=== PATIENT | male | born 1940 | race Caucasian/White ===

== ENCOUNTER 2018-12-06 20:01 | Inpatient (IN) | payer MEDICARE ==
[~2018-12-06] VITALS: Ht 188 cm; Wt 110.5 kg
[2018-12-06 22:20] VITALS: BP 161/84
[2018-12-06] MEDS ORDERED: DOCU-131 PO (22:54)
[2018-12-06] MEDS ORDERED: LOVA40TA2 PO (22:54)
[2018-12-06] MEDS ORDERED: GUAI600T80 PO (22:54)
[2018-12-06] MEDS ORDERED: LANS30CA PO (22:54)
[2018-12-06] MEDS ORDERED: GLIP10TA13 PO (22:54)
[2018-12-06] MEDS ORDERED: TERA10CA3 PO (22:54)
[2018-12-06] MEDS ORDERED: LOSA25TA25 PO (22:54)
[2018-12-06] MEDS ORDERED: METF500T17 PO (22:54)
[2018-12-06] MEDS ORDERED: INSU100I28 SQ-INSULIN ×2 (22:54)
[2018-12-06] MEDS ORDERED: ASPI-496 PO (22:54)
[2018-12-06] MEDS ORDERED: MONT10TA6 PO (22:54)
[2018-12-06] MEDS ORDERED: IBUP-1484 PO (22:54)
[2018-12-06] MEDS ORDERED: PIOG15TA22 PO (22:54)
[2018-12-06 23:19] VITALS: BP 161/84
[2018-12-06] MEDS ORDERED: SODIUM CHLORIDE 0.9% 1,000 ML IV SCH (23:50)
[2018-12-07] MEDS ORDERED: ENOXAPARIN 120MG/0.8ML SQ SCH
[2018-12-07] MEDS ORDERED: ACETAMINOPHEN 325 MG TABLET PO PRN
[2018-12-07] MEDS ORDERED: POLYETHYLENE GLYCOL 17 GM PACKET PO PRN
[2018-12-07] MEDS ORDERED: ONDANSETRON 2MG/ML, 2ML IVPush PRN
[2018-12-07] MEDS ORDERED: hydrALAzine 20 MG/ML, 1ML IVPush PRN
[2018-12-07] MEDS: CEFTRIAXONE PMX 2GM/50ML 50 ML IV SCH (00:17)
[2018-12-07] MEDS ORDERED: ALBUTEROL SULFATE 2.5 MG/3 ML NPPB PRN (01:00)
[2018-12-07 01:31] LABS: HEMOGLOBIN A1C 8.3 % (4.2-6.3)
[2018-12-07 02:10] VITALS: BP 138/80
[2018-12-07] MEDS: ASPIRIN 325 MG TABLET EC PO SCH (05:38)
[2018-12-07 06:31] VITALS: BP 143/83
[2018-12-07 06:53] LABS: BASOPHILS # (AUTO) 0.02 x10^3/uL (0-0.1); BASOPHILS % (AUTO) 0 % (0-1); EOSINOPHILS # (AUTO) 0.03 x10^3/uL (0-0.4); EOSINOPHILS % (AUTO) 0 % (1-7); LYMPHOCYTES # (AUTO) 1.01 x10^3/uL (1-3.4); LYMPHOCYTES % (AUTO) 11 % (22-44); MD NO; MEAN CORPUSCULAR HEMOGLOBIN 32.5 pg (27.5-34.5); MEAN CORPUSCULAR HGB CONC 33.6 g/dL (33.2-36.2); MEAN CORPUSCULAR VOLUME 96.6 fL (81-97); MEAN PLATELET VOLUME 8.6 fL (7.4-10.4); MONOCYTES # (AUTO) 1.03 x10^3/uL (0.2-0.8); MONOCYTES % (AUTO) 11 % (2-9); NEUTROPHILS # (AUTO) 7.38 x10^3/uL (1.8-6.8); NEUTROPHILS % (AUTO) 78 % (42-75); PLATELET COUNT 189 x10^3/uL (130-400); RED BLOOD COUNT 3.86 x10^6/uL (4.38-5.82); RED CELL DISTRIBUTION WIDTH 14.1 % (9.4-14.8)
[2018-12-07 07:02] LABS: ALBUMIN 2.8 g/dL (3.4-5.0); ANION GAP 9 mmol/L (5-15); CALCIUM 8.6 mg/dL (8.5-10.1); CHLORIDE 104 mmol/L (98-107)
[2018-12-07 07:09] LABS: ALANINE AMINOTRANSFERASE 42 U/L (12-78); ALKALINE PHOSPHATASE 91 U/L (45-117); BILIRUBIN,TOTAL 0.6 mg/dL (0.2-1.0); CHOL/HDL RATIO 2.8; CHOLESTEROL, TOTAL 116 mg/dL (140-239); HDL CHOL % 35 % (26-37); HDL CHOLESTEROL (DIRECT) 41 mg/dL (40-60); LDL CHOLESTEROL,CALCULATED 48 mg/dL (54-169); LDL/HDL RATIO 1.2 (0.5-3.0); TOTAL PROTEIN 6.9 g/dL (6.4-8.2); TRIGLYCERIDES 134 mg/dL (50-200); VLDL CHOLESTEROL 27 mg/dL (0-25)
[2018-12-07] MEDS: INSULIN LISPRO 100 UNITS/ML, PEN SQ-INSULIN SCH ×4 (08:08→20:18)
[2018-12-07] MEDS ORDERED: HEPARIN 5,000 UNITS/ML, 1ML IV ONE (08:30)
[2018-12-07] MEDS ORDERED: INSULIN GLARGINE 100 UNITS/ML, PEN SQ-INSULIN ONE (08:30)
[2018-12-07] MEDS: PANTOPROZOLE 40MG TABLET PO SCH (08:58)
[2018-12-07] MEDS: GUAIFENESIN ER 600 MG TABLET PO SCH ×2 (08:58→20:18)
[2018-12-07] MEDS: AZITHROMYCIN 500 MG TABLET PO SCH (08:59)
[2018-12-07] MEDS: LOSARTAN 25MG TABLET PO SCH (08:59)
[2018-12-07] MEDS ORDERED: INSULIN GLARGINE 100 UNITS/ML, PEN SQ-INSULIN SCH (09:00)
[2018-12-07] MEDS: HEPARIN 25,000 UNITS/500ML PMX 500 ML IV PRN (09:15)
[2018-12-07 11:41] VITALS: BP 132/72
[2018-12-07] MEDS ORDERED: NITROGLYCERIN 0.4 MG/SPRAY SL PRN (12:00)
[2018-12-07] MEDS ORDERED: NITROGLYCERIN 0.4 MG BOTTLE (25 TABS) SL PRN (12:00)
[2018-12-07] MEDS ORDERED: GLUCAGON 1 MG IM PRN (12:30)
[2018-12-07] MEDS ORDERED: DEXTROSE 4 GM TAB.CHEW PO PRN (12:30)
[2018-12-07] MEDS ORDERED: DEXTROSE 50%, 50ML SYRINGE IVPush PRN (12:30)
[2018-12-07 13:58] VITALS: BP 127/72
[2018-12-07] MEDS: HEPARIN 5,000 UNITS/ML, 1ML IV PRN ×2 (16:14→23:25)
[2018-12-07 19:51] VITALS: BP 119/57
[2018-12-07] MEDS ORDERED: TERAZOSIN 5MG CAPSULE ONE (19:56)
[2018-12-07] MEDS: INSULIN GLARGINE 100 UNITS/ML, PEN SQ-INSULIN SCH (20:17)
[2018-12-07] MEDS: TERAZOSIN 2MG CAPSULE PO SCH (20:18)
[2018-12-07] MEDS: LOVASTATIN 40 MG TABLET PO SCH (20:18)
[2018-12-07] MEDS: SODIUM CHLORIDE FLUSH 10ML SYR IVF SCH (20:19)
[2018-12-07] MEDS: DOCUSATE 100 MG CAPSULE PO SCH (20:19)
[2018-12-07 21:25] VITALS: BP 114/58
[2018-12-07] MEDS: SODIUM CHLORIDE 0.9% 1,000 ML IV SCH (23:57)
[2018-12-08] MEDS: CEFTRIAXONE PMX 2GM/50ML 50 ML IV SCH (00:12)
[2018-12-08 01:02] VITALS: BP 130/78
[2018-12-08 05:30] LABS: BASOPHILS # (AUTO) 0.05 x10^3/uL (0-0.1); BASOPHILS % (AUTO) 1 % (0-1); EOSINOPHILS # (AUTO) 0.26 x10^3/uL (0-0.4); EOSINOPHILS % (AUTO) 4 % (1-7); LYMPHOCYTES # (AUTO) 1.23 x10^3/uL (1-3.4); LYMPHOCYTES % (AUTO) 18 % (22-44); MD NO; MEAN CORPUSCULAR HEMOGLOBIN 32.8 pg (27.5-34.5); MEAN CORPUSCULAR HGB CONC 33.6 g/dL (33.2-36.2); MEAN CORPUSCULAR VOLUME 97.6 fL (81-97); MEAN PLATELET VOLUME 8.2 fL (7.4-10.4); MONOCYTES # (AUTO) 0.97 x10^3/uL (0.2-0.8); MONOCYTES % (AUTO) 15 % (2-9); NEUTROPHILS # (AUTO) 4.19 x10^3/uL (1.8-6.8); NEUTROPHILS % (AUTO) 63 % (42-75); PLATELET COUNT 211 x10^3/uL (130-400); RED BLOOD COUNT 3.61 x10^6/uL (4.38-5.82); RED CELL DISTRIBUTION WIDTH 13.5 % (9.4-14.8)
[2018-12-08 05:41] LABS: ALBUMIN 2.5 g/dL (3.4-5.0); ANION GAP 7 mmol/L (5-15); CALCIUM 8.5 mg/dL (8.5-10.1); CHLORIDE 107 mmol/L (98-107)
[2018-12-08 05:44] LABS: ALANINE AMINOTRANSFERASE 41 U/L (12-78); ALKALINE PHOSPHATASE 102 U/L (45-117); BILIRUBIN,TOTAL 0.3 mg/dL (0.2-1.0); TOTAL PROTEIN 6.3 g/dL (6.4-8.2)
[2018-12-08] MEDS: ASPIRIN 325 MG TABLET EC PO SCH (05:48)
[2018-12-08] MEDS ORDERED: POTASSIUM CHLORIDE 20 MEQ in SODIUM CHLORIDE 0.9% 250 ML IV ONE (06:30)
[2018-12-08 06:31] VITALS: BP 112/67
[2018-12-08] MEDS: INSULIN LISPRO 100 UNITS/ML, PEN SQ-INSULIN SCH ×4 (07:00→21:21)
[2018-12-08] MEDS: HEPARIN 25,000 UNITS/500ML PMX 500 ML IV PRN (07:43)
[2018-12-08] MEDS: SODIUM CHLORIDE 0.9% 1,000 ML IV SCH ×2 (07:50→21:23)
[2018-12-08] MEDS ORDERED: SODIUM CHLORIDE 0.9% 1,000 ML IV SCH ×2 (08:17→15:06)
[2018-12-08] MEDS: LOSARTAN 25MG TABLET PO SCH (08:46)
[2018-12-08] MEDS: PANTOPROZOLE 40MG TABLET PO SCH (08:46)
[2018-12-08] MEDS: GUAIFENESIN ER 600 MG TABLET PO SCH ×2 (08:46→21:21)
[2018-12-08] MEDS: AZITHROMYCIN 500 MG TABLET PO SCH (09:19)
[2018-12-08] MEDS: INSULIN GLARGINE 100 UNITS/ML, PEN SQ-INSULIN SCH ×2 (09:23→21:28)
[2018-12-08 12:58] VITALS: BP 137/74
[2018-12-08] MEDS ORDERED: VERAPAMIL 2.5 MG/ML, 2ML ONE (13:42)
[2018-12-08] MEDS ORDERED: LIDOCAINE-MPF 1%, 5ML ONE (13:42)
[2018-12-08] MEDS ORDERED: MIDAZOLAM 1 MG/ML, 2ML ONE (13:42)
[2018-12-08] MEDS ORDERED: FENTANYL PF 100 MCG/2ML ONE (13:42)
[2018-12-08] MEDS: HEPARIN 5,000 UNITS/ML, 1ML IV PRN (13:47)
[2018-12-08] MEDS ORDERED: TICAGRELOR 90 MG TABLET ONE (14:44)
[2018-12-08] MEDS ORDERED: BIVALIRUDIN 250 MG ONE (14:44)
[2018-12-08] MEDS ORDERED: BIVALIRUDIN 250 MG in SODIUM CHLORIDE 0.9% 50 ML IV SCH (15:06)
[2018-12-08 18:46] VITALS: BP 138/77
[2018-12-08] MEDS: DOCUSATE 100 MG CAPSULE PO SCH (21:21)
[2018-12-08] MEDS: LOVASTATIN 40 MG TABLET PO SCH (21:21)
[2018-12-08] MEDS: TERAZOSIN 2MG CAPSULE PO SCH (21:21)
[2018-12-08] MEDS: TICAGRELOR 90 MG TABLET PO SCH (21:21)
[2018-12-08] MEDS: SODIUM CHLORIDE FLUSH 10ML SYR IVF SCH (21:29)
[2018-12-09] MEDS: CEFTRIAXONE PMX 2GM/50ML 50 ML IV SCH (00:30)
[2018-12-09 01:40] VITALS: BP 133/67
[2018-12-09 05:16] LABS: BASOPHILS # (AUTO) 0.02 x10^3/uL (0-0.1); BASOPHILS % (AUTO) 0 % (0-1); EOSINOPHILS # (AUTO) 0.34 x10^3/uL (0-0.4); EOSINOPHILS % (AUTO) 5 % (1-7); LYMPHOCYTES # (AUTO) 0.99 x10^3/uL (1-3.4); LYMPHOCYTES % (AUTO) 15 % (22-44); MD NO; MEAN CORPUSCULAR HEMOGLOBIN 32.1 pg (27.5-34.5); MEAN CORPUSCULAR VOLUME 97.1 fL (81-97); MEAN PLATELET VOLUME 7.5 fL (7.4-10.4); MONOCYTES % (AUTO) 14 % (2-9); NEUTROPHILS # (AUTO) 4.17 x10^3/uL (1.8-6.8); NEUTROPHILS % (AUTO) 65 % (42-75); PLATELET COUNT 247 x10^3/uL (130-400); RED BLOOD COUNT 3.79 x10^6/uL (4.38-5.82); RED CELL DISTRIBUTION WIDTH 13.7 % (9.4-14.8)
[2018-12-09 05:25] LABS: ALBUMIN 2.6 g/dL (3.4-5.0); ANION GAP 6 mmol/L (5-15); CALCIUM 8.9 mg/dL (8.5-10.1); CHLORIDE 108 mmol/L (98-107)
[2018-12-09] MEDS: ASPIRIN 325 MG TABLET EC PO SCH (05:27)
[2018-12-09 05:29] LABS: ALANINE AMINOTRANSFERASE 37 U/L (12-78); ALKALINE PHOSPHATASE 95 U/L (45-117); BILIRUBIN,TOTAL 0.5 mg/dL (0.2-1.0); CREATININE 0.82 mg/dL (0.7-1.3); TOTAL PROTEIN 6.4 g/dL (6.4-8.2)
[2018-12-09 06:34] VITALS: BP 148/73
[2018-12-09] MEDS: INSULIN LISPRO 100 UNITS/ML, PEN SQ-INSULIN SCH ×2 (07:00→11:10)
[2018-12-09] MEDS: GUAIFENESIN ER 600 MG TABLET PO SCH (08:53)
[2018-12-09] MEDS: TICAGRELOR 90 MG TABLET PO SCH (08:53)
[2018-12-09] MEDS: PANTOPROZOLE 40MG TABLET PO SCH (08:53)
[2018-12-09] MEDS: LOSARTAN 25MG TABLET PO SCH (08:53)
[2018-12-09] MEDS: AZITHROMYCIN 500 MG TABLET PO SCH (08:53)
[2018-12-09] MEDS: INSULIN GLARGINE 100 UNITS/ML, PEN SQ-INSULIN SCH ×2 (09:00→11:10)
[2018-12-09] MEDS ORDERED: ASPIRIN 81 MG TABLET EC PO SCH (09:00)
[2018-12-09 12:40] VITALS: BP 167/74
[2018-12-09] MEDS ORDERED: NITR0.4T SL (15:56)
[2018-12-09] MEDS ORDERED: TICA90TA PO (15:56)
[2018-12-09] MEDS ORDERED: AZIT500T5 PO (15:56)
[2018-12-09] MEDS ORDERED: CEFD300C37 PO (15:57)
[2018-12-10] MEDS ORDERED: METOPROLOL SUCCINATE 25 MG TAB.ER.24H PO SCH (06:00)
== END 2018-12-09 18:30 | disposition home or self-care (01) | DRG 246 ==
LOC: 5SO 22:28
PROVIDERS: ADMIT Family Medicine; ATTEND Family Medicine
PROC: 027034Z Dilation of Coronary Artery, One Artery with Drug-eluting Intraluminal Device, Percutaneous Approach (ICD-10-PCS; principal; 2018-12-08)
PROC: 4A023N7 Measurement of Cardiac Sampling and Pressure, Left Heart, Percutaneous Approach (ICD-10-PCS; 2018-12-08)
PROC: B2111ZZ Fluoroscopy of Multiple Coronary Arteries using Low Osmolar Contrast (ICD-10-PCS; 2018-12-08)
PROC: B2151ZZ Fluoroscopy of Left Heart using Low Osmolar Contrast (ICD-10-PCS; 2018-12-08)
DX: I21.4 Non-ST elevation (NSTEMI) myocardial infarction (principal); J18.1 Lobar pneumonia, unspecified organism; J96.01 Acute respiratory failure with hypoxia; E11.319 Type 2 diabetes mellitus with unspecified diabetic retinopathy without macular edema; E11.42 Type 2 diabetes mellitus with diabetic polyneuropathy; E11.51 Type 2 diabetes mellitus with diabetic peripheral angiopathy without gangrene; E66.9 Obesity, unspecified; E78.5 Hyperlipidemia, unspecified; G47.33 Obstructive sleep apnea (adult) (pediatric); I10 Essential (primary) hypertension; I25.10 Atherosclerotic heart disease of native coronary artery without angina pectoris; K21.9 Gastro-esophageal reflux disease without esophagitis; Z79.01 Long term (current) use of anticoagulants; Z85.820 Personal history of malignant melanoma of skin; Z68.31 Body mass index [BMI] 31.0-31.9, adult; Z99.81 Dependence on supplemental oxygen
CPT/HCPCS: 36415; 71046; 80053; 80061; 82962; 83036; 83735; 84484; 85025; 85520; 87040; 93005; 93458; 99156; 99157; C1894; C8929; C9600; G0378; J0583; J0696; J1644; J2250; J3010; J3480; C1725; C1769; C1874; C1887; J1815; J7030; J7050; Q9967